=== PATIENT | male | born 1955 | race Caucasian/White ===

== ENCOUNTER 2016-05-16 12:01 | Emergency (ER) | payer BC ==
[~2016-05-16] VITALS: Ht 157.5 cm; Wt 73.9 kg
[~2016-05-16 12:01] MED LIST: AMLO-110 PO; ATOR-22 PO; BUPRTAB51 PO; FENO200C6 PO; IBUP-1451 PO; LISI-786; MELO15TA4 PO; METO1TAB71 PO
[2016-05-16 12:03] VITALS: TEMP 36.8; Ht 157.5 cm; Wt 73.9 kg
[2016-05-16] MEDS ORDERED: LORAZEPAM 1 MG TAB SL STA (13:46)
[2016-05-16 13:52] LABS: HEMATOCRIT 46.4 % (42-52); MEAN CELL VOLUME 83.6 fL (80-100); MEAN CORPUSCULAR HEMOGLOBIN 29.9 pg (25-34); MEAN CORPUSCULAR HGB CONC 35.8 g/dl (32-36); MEAN PLATELET VOLUME 10.9 fL (7.4-10.4); PLATELET COUNT 313 K/uL (130-400); RED BLOOD COUNT 5.55 M/uL (4.7-6.1); WHITE BLOOD COUNT 10.76 K/uL (4.8-10.8)
[2016-05-16 14:03] LABS: ACETAMINOPHEN < 2 ug/ml (10-30)
[2016-05-16 14:06] LABS: BUN/CREATININE RATIO 14.4 (10-20); CALCIUM 9.6 mg/dl (8.5-10.1); CREATININE 1.4 mg/dl (0.60-1.40)
[2016-05-16 14:17] LABS: THYROID STIMULATING HORMONE 2.53 uIu/ml (0.300-4.500)
[2016-05-16 14:34] LABS: BENZODIAZEPINE, URINE NEG (NEG); COCAINE,URINE NEG (NEG); PHENCYCLIDINE, URINE NEG (NEG)
[2016-05-16] MEDS ORDERED: ATV/1 PO (14:56)
[2016-05-16 15:04] VITALS: BP 156/79; PULSE 59; O2SAT 99
--- NOTE | 2016-05-16 19:11 | EMERGENCY ROOM VISIT NOTE ---
History Report prepared by Tatyana: Ivonne Rogers Under the Supervision of: Dr. Mann Reed M.D. First contact with patient: 12:17 Chief Complaint: MENTAL HEALTH EVALUATION Stated Complaint: MR History of Present Illness The patient is a 61 year old male who presents to the Emergency Room with complaints of constant obsessive behaviors beginning a couple of weeks ago. The patient states that he has not felt like himself for years and is having trouble because he gets "stuck on something" and cannot stop thinking about it. He states that right now he is fixated on his teeth and can't stop picking at them with his tongue since he had teeth pulled recently. He reports that he saw his PCP and explained the situation and was told to come in to the ED for further evaluation. The patient states that he feels like he has to be perfect at things and notes that if his car is not parked right he will re-park it until it is perfect. The patient complains of an 18 pound weight loss in the last month due to a lack of eating for fear about his teeth. He also notes that he is very anxious and is uncomfortable from when he wakes up until he goes to sleep. The patient denies any suicidal or homicidal ideation, fever, and vomiting. He notes that he does not see a therapist. He is on Wellbutrin. Source of History: patient Onset: a few weeks Position: other (mental health) Quality: other (anxiety and compulsive behaviors) Timing: constant Modifying Factors (Worsening): eating Associated Symptoms: No fevers, No vomiting Note: The patient complains of an 18 pound weight loss in the last month due to a lack of eating for fear about his teeth. He also notes that he is very anxious and is uncomfortable from when he wakes up until he goes to sleep. The patient denies any suicidal or homicidal ideation. Review of Systems See HPI for pertinent positives & negatives. A total of 10 systems reviewed and were otherwise negative. Past Medical & Surgical Medical Problems: (1) Depression Family History No pertinent family history stated. Social History Smoking Status: Never Smoker Marital Status: Housing Status: lives with significant other Current/Historical Medications Scheduled Amlodipine (Norvasc), 10 MG PO DAILY Atorvastatin (Lipitor), 20 MG PO DAILY Bupropion (Wellbutrin-Xl), 150 MG PO DAILY Fenofibrate (Tricor), 200 MG PO DAILY Ibuprofen Tab (Motrin), 800 MG PO DAILY Lisinopril & Hydrochlorothiazi (Zestoretic), 2 TABLET DAILY Meloxicam (Mobic), 15 MG PO DAILY Metoprolol Succinate (Toprolxl (Toprol-Xl), 200 MG PO DAILY Scheduled PRN Lorazepam (Ativan), 1 MG PO Q12 PRN for Anxiety/Agitation Allergies Coded Allergies: No Known Allergies (Unverified , UNKNOWN, 05/16/16) Uncoded Allergies: NKA (Allergy, Unknown, UNKNOWN, 09/20/14) No Known Allergies Physical Exam Vital Signs Date Time Temp Pulse Resp B/P Pulse Ox O2 Delivery O2 Flow Rate FiO2 05/16/16 15:04 59 18 156/79 99 05/16/16 14:00 51 20 134/79 100 Room Air 05/16/16 12:03 36.8 51 18 141/78 96 Room Air Physical Exam Constitutional: Vital signs reviewed. Eyes: Pupils are equal round reactive to light. Conjunctiva are noninjected. ENT: Pharynx is clear without erythema or exudate. Mucous membranes are moist. Neck supple without meningeal signs. Poor dentition, no signs of gingival hyperemia or abscess, no facial or neck tenderness or swelling or lymphadenopathy. Respiratory: Clear to auscultation bilaterally. Breath sounds are equal bilaterally. Cardiovascular: Regular rate and rhythm. No rubs or gallops. GI: Soft, nondistended and nontender. Bowel sounds are present. Musculoskeletal: No peripheral edema. No lower extremity tenderness. Integumentary: No cyanosis. Neurological: The patient is awake and alert. No focal deficits. Psychiatric: Anxious affect. Medical Decision & Procedures Laboratory Results 05/16/16 12:22 05/16/16 12:22 Test 05/16/16 12:22 05/16/16 13:19 Red Blood Count 5.55 M/uL (4.7-6.1) Mean Corpuscular Volume 83.6 fL (80-100) Mean Corpuscular Hemoglobin 29.9 pg (25-34) Mean Corpuscular Hemoglobin Concent 35.8 g/dl (32-36) RDW Standard Deviation 38.2 fL (36.4-46.3) RDW Coefficient of Variation 12.6 % (11.5-14.5) Mean Platelet Volume 10.9 fL (7.4-10.4) Anion Gap 11.0 mmol/L (3-11) Est Creatinine Clear Calc Drug Dose 49.5 ml/min Estimated GFR () 62.8 Estimated GFR (Non- 54.2 BUN/Creatinine Ratio 14.4 (10-20) Calcium Level 9.6 mg/dl (8.5-10.1) Total Bilirubin 0.8 mg/dl (0.2-1) Direct Bilirubin 0.1 mg/dl (0-0.2) Aspartate Amino Transf (AST/SGOT) 25 U/L (15-37) Alanine Aminotransferase (ALT/SGPT) 47 U/L (12-78) Alkaline Phosphatase 43 U/L (45-117) Total Protein 8.0 gm/dl (6.4-8.2) Albumin 4.7 gm/dl (3.4-5.0) Thyroid Stimulating Hormone (TSH) 2.530 uIu/ml (0.300-4.500) Salicylates Level < 1.7 mg/dl (2.8-20) Acetaminophen Level < 2 ug/ml (10-30) Ethyl Alcohol mg/dL < 3.0 mg/dl (0-3) Urine Opiates Screen NEG (NEG) Urine Methadone, Qualitative NEG (NEG) Urine Barbiturates NEG (NEG) Urine Phencyclidine (PCP) Level NEG (NEG) Ur Amphetamine/Methamphetamine NEG (NEG) MDMA (Ecstasy) Screen POS (NEG) Urine Benzodiazepines Screen NEG (NEG) Urine Cocaine Metabolite NEG (NEG) Urine Marijuana (THC) POS (NEG) Laboratory results as reviewed by me. Medications Administered Medications (Trade) Dose Ordered Sig/Brisa Route Start Time Stop Time Status Last Admin Dose Admin Lorazepam (Ativan Tab) 1 mg NOW STAT SL 05/16/16 13:46 05/16/16 13:47 DC 05/16/16 13:53 1 MG ED Course 1222: The patient was evaluated in room A6. A complete history and physical exam was performed. 1335: I had a long discussion with the patient, his and the mental health block and case maker discussing various options. He wanted to stay in the hospital here and we explained that we have no beds here at [address] [place] [address]. We discussed starting benzodiazepines and he initially got angry and wanted to leave. I was able to calm him down and he was agreeable to starting them here and waiting for reevaluation. 1346: Ativan Tab 1mg SL. 1435: I reevaluated the patient. He is feeling better and is calm. He reports that he has less of an urge to pick his teeth and he is ready to go home. 1505: Upon reevaluation, the patient appeared to have improvement of his symptoms. I discussed tonight's findings with the patient. He verbalized agreement of the treatment plan. The patient was discharged home. Medical Decision This is a 61-year-old male who presents for mental health evaluation. I did perform a limited focused review of portions of the patient's old chart on the electronic medical record. The patient has had no recent pertinent visits to this hospital. I did evaluate the patient as noted above. The patient has had compulsive behaviors for years. He also has significant anxiety. He has been treated by his PCP with Wellbutrin but has not seen a counselor or therapist. He feels like his anxiety is getting worse and he is having trouble sleeping and coping with his behavior. He went to his PCPs office who sent him here for evaluation. I did order and review the patient's blood work as noted in the electronic medical record. I did treat the patient with Ativan 1 mg. I did reassess the patient several times. He is feeling better at this time and feels less anxious. He does not feel like he needs to be hospitalized at this point. The mental health block and case maker will set him up with an appointment with [facility] where he will get therapy as well as medications. He was given a short prescription for Ativan. I did have a long discussion with him and his regarding benzodiazepine including the possibility of physiologic and psychologic dependence. He was discharged in good condition. Impression Primary Impression: Anxiety Additional Impression: Compulsive behavior Scribe Attestation The scribe's documentation has been prepared under my direct and personally reviewed by me in its entirety. I confirm that the note above accurately reflects all work, treatment, procedures, and medical decision making performed by me. Departure Information Dispostion Home / Self-Care Prescriptions Lorazepam (ATIVAN) 1 Mg Tab 1 MG PO Q12 Y for Anxiety/Agitation, #20 TAB Prov: Mann Reed M.D. 05/16/16 Referrals Lamberto Ramirez M.D. (PCP) Forms HOME CARE DOCUMENTATION FORM, IMPORTANT VISIT INFORMATION Patient Instructions ED Obsessive Compulsive Disorder, Lorazepam Oral tablet, [facility] Additional Instructions You have been examined and treated today on an emergency basis only. This is not a substitute for, or an effort to provide, complete comprehensive medical care. It is impossible to recognize and treat all injuries or illnesses in a single emergency department visit. It is therefore important that you follow up closely with your physician, a counselor and psychiatrist. Call as soon as possible for an appointment. Return for worsening symptoms or if you develop thoughts of hurting yourself or others or any other concerning symptoms. Problem Qualifiers
== END 2016-05-16 15:04 | disposition home or self-care (01) ==
LOC: C.EDB 12:03 → C.EDA 15:04
DX: F41.9 Anxiety disorder, unspecified (principal); F60.5 Obsessive-compulsive personality disorder; F32.9 Major depressive disorder, single episode, unspecified; Z79.899 Other long term (current) drug therapy

== ENCOUNTER → 2016-06-02 | Outpatient (CLI) | payer BC ==
[2016-06-02 14:40] LABS: BASO % 0.2 %; BASO ABS # 0.02 K/uL (0-0.2); COMPLETE YES; EOS % 0.9 %; HEMATOCRIT 40.7 % (42-52); IG% 0.5 %; LYMPH % 25.5 %; LYMPH ABS # 2.34 K/uL (1.2-3.4); MEAN CELL VOLUME 83.7 fL (80-100); MEAN CORPUSCULAR HGB CONC 35.9 g/dl (32-36); MEAN PLATELET VOLUME 10.7 fL (7.4-10.4); MONO % 7.8 %; NEUT % 65.1 %; PLATELET COUNT 297 K/uL (130-400); RED BLOOD COUNT 4.86 M/uL (4.7-6.1); WHITE BLOOD COUNT 9.16 K/uL (4.8-10.8)
[2016-06-02 14:54] LABS: ESTIMATED AVERAGE GLUCOSE 123 mg/dl; HA1C FLAG Normal (Normal)
[2016-06-02 15:05] LABS: ALT/SGPT 36 U/L (12-78); AST/SGOT 19 U/L (15-37); BLOOD UREA NITROGEN 22 mg/dl (7-18); BUN/CREATININE RATIO 14.7 (10-20); CALCIUM 9.5 mg/dl (8.5-10.1); CARBON DIOXIDE 26 mmol/L (21-32); CHLORIDE 105 mmol/L (98-107); CHOLESTEROL 131 mg/dl (0-200); GLUCOSE 101 mg/dl (70-99); POTASSIUM 4.1 mmol/L (3.5-5.1); SODIUM 141 mmol/L (136-145)
[2016-06-02 15:18] LABS: ALB/GLOB RATIO 1.5 (0.9-2); ALKALINE PHOSPHATASE 33 U/L (45-117); CHOLESTEROL/HDL RATIO 3.1; HDL CHOLESTEROL 42 mg/dl; LDL CHOLESTEROL CALCULATED 45 mg/dl; TRIGLYCERIDES 221 mg/dl (0-150); VERY LOW DENSITY LIPOPROT CALC 44 mg/dl
== END | disposition home or self-care (01) ==
LOC: C.LAB 13:26
PROVIDERS: ATTEND Internal Medicine Geriatric Medicine
DX: I10 Essential (primary) hypertension (principal); E78.5 Hyperlipidemia, unspecified; R73.9 Hyperglycemia, unspecified; M19.90 Unspecified osteoarthritis, unspecified site

== ENCOUNTER → 2016-06-05 | Outpatient (CLI) | payer BC ==
--- NOTE | 2016-06-05 07:56 | DIAGNOSTIC IMAGING REPORT ---
RENAL ULTRASOUND HISTORY: Pain R79.89 Creatinine elevation COMPARISON: None. FINDINGS: Right kidney: Maximum dimension 10.7 cm. 3 x 2 cm lower pole cyst Normal corticomedullary differentiation and cortical thickness. Left kidney: Maximum dimension 10.5 cm. Normal corticomedullary differentiation and cortical thickness. Bladder: No bladder wall thickening. The bilateral ureteral jets were identified. IMPRESSION: Small right renal cyst. Otherwise negative study Electronically signed by: Tripp Santana M.D. 06/05/2016 7:55 AM Dictated Date/Time: 06/05/2016 7:52 AM
== END | disposition home or self-care (01) ==
LOC: C.ULTRBC 07:20
PROVIDERS: ATTEND Internal Medicine Geriatric Medicine
DX: R79.89 Other specified abnormal findings of blood chemistry (principal); N28.1 Cyst of kidney, acquired

== ENCOUNTER → 2016-06-08 | Outpatient (CLI) | payer BC ==
[2016-06-08 11:36] LABS: BLOOD UREA NITROGEN 18 mg/dl (7-18); BUN/CREATININE RATIO 12.9 (10-20); CARBON DIOXIDE 27 mmol/L (21-32); CHLORIDE 101 mmol/L (98-107); GLUCOSE 124 mg/dl (70-99); POTASSIUM 4.1 mmol/L (3.5-5.1); SODIUM 137 mmol/L (136-145)
== END | disposition home or self-care (01) ==
LOC: C.LABBC 08:21
PROVIDERS: ATTEND Internal Medicine Geriatric Medicine
DX: I10 Essential (primary) hypertension (principal)

== ENCOUNTER → 2017-07-19 | Outpatient (CLI) | payer OTHER ==
[~2017-07-19] MED LIST changes: +MELO-84 PO; -MELO15TA4 PO; -METO1TAB71 PO; +METO200T32 PO
--- NOTE | 2017-07-19 15:30 | DIAGNOSTIC IMAGING REPORT ---
CHEST 2 VIEWS ROUTINE HISTORY: 62 years-old Male R05 [id number] acute cough COMPARISON: Chest radiographs 02/16/2017 TECHNIQUE: PA and lateral views of the chest FINDINGS: Cardiomediastinal and hilar silhouettes are within normal limits. No pneumothorax, pleural effusion, focal airspace consolidation or overt pulmonary edema. The bones of the chest appear grossly intact. IMPRESSION: No acute process. The above report was generated using voice recognition software. It may contain grammatical, syntax or spelling errors. Electronically signed by: Duong Messer M.D. 07/19/2017 3:29 PM Dictated Date/Time: 07/19/2017 3:27 PM
--- NOTE | 2017-07-19 15:34 | DIAGNOSTIC IMAGING REPORT ---
L-SPINE MIN 4 VIEWS ROUTINE, THORACIC SPINE 3 VIEWS ROUTINE HISTORY: 62 years-old Male M54.5 Low back pain acute thoracic and lumbar spine pain COMPARISON: Lumbar spine radiographs 07/20/2014 TECHNIQUE: 5 views of the lumbar spine and 3 views of the thoracic spine FINDINGS: THORACIC: Mild convex right curvature of the thoracic spine. No acute fracture or subluxation. Mild multilevel endplate spurring and mild intervertebral disc space narrowing. Mild anterior endplate wedging of less than 20% involves the T12 vertebral body, unchanged. Imaged lung monroy appear clear. LUMBAR: 5 lumbar type vertebral segments are present. No spondylolysis or spondylolisthesis. No acute fracture or subluxation. Mild multilevel endplate spurring and facet arthrosis. Atherosclerosis of the aorta. IMPRESSION: No acute fracture or subluxation identified involving the thoracic or lumbar spine. The above report was generated using voice recognition software. It may contain grammatical, syntax or spelling errors. Electronically signed by: Duong Messer M.D. 07/19/2017 3:32 PM Dictated Date/Time: 07/19/2017 3:29 PM
[2017-07-19 16:57] LABS: BASO % 0.9 %; BASO ABS # 0.11 K/uL (0-0.2); EOS % 0.8 %; EOS ABS # 0.09 K/uL (0-0.5); HEMATOCRIT 37.8 % (42-52); HEMOGLOBIN 13.2 g/dL (14.0-18.0); IG# 0.59 K/uL (0.00-0.02); LYMPH % 29.4 %; LYMPH ABS # 3.46 K/uL (1.2-3.4); MEAN CELL VOLUME 85.5 fL (80-100); MEAN CORPUSCULAR HEMOGLOBIN 29.9 pg (25-34); MEAN CORPUSCULAR HGB CONC 34.9 g/dl (32-36); MEAN PLATELET VOLUME 10.3 fL (7.4-10.4); MONO % 6.6 %; MONO ABS # 0.78 K/uL (0.11-0.59); NEUT % 57.3 %; NEUT ABS # 6.74 K/uL (1.4-6.5); PLATELET COUNT 394 K/uL (130-400); RED CELL DISTRIBUTION WIDTH CV 13.4 % (11.5-14.5); RED CELL DISTRIBUTION WIDTH SD 41.9 fL (36.4-46.3); WHITE BLOOD COUNT 11.77 K/uL (4.8-10.8)
[2017-07-19 17:25] LABS: ALBUMIN 4.1 gm/dl (3.4-5.0); ALT/SGPT 40 U/L (12-78); BLOOD UREA NITROGEN 24 mg/dl (7-18); CALCIUM 9.7 mg/dl (8.5-10.1); CARBON DIOXIDE 25 mmol/L (21-32); CHOLESTEROL 163 mg/dl (0-200); CREATININE 1.22 mg/dl (0.60-1.40); GLUCOSE 106 mg/dl (70-99); POTASSIUM 4.6 mmol/L (3.5-5.1); SODIUM 139 mmol/L (136-145)
[2017-07-19 17:35] LABS: ALKALINE PHOSPHATASE 53 U/L (45-117); AST/SGOT 20 U/L (15-37); LDL CHOLESTEROL CALCULATED 74 mg/dl; TOTAL PROTEIN 7.6 gm/dl (6.4-8.2)
[2017-07-20 06:28] LABS: HEMOGLOBIN A1C 6.1 % (4.5-5.6)
== END | disposition home or self-care (01) ==
LOC: C.RADBC 13:54
PROVIDERS: ATTEND Internal Medicine Geriatric Medicine
DX: I12.9 Hypertensive chronic kidney disease with stage 1 through stage 4 chronic kidney disease, or unspecified chronic kidney disease (principal); E78.5 Hyperlipidemia, unspecified; F42.9 Obsessive-compulsive disorder, unspecified; F32.9 Major depressive disorder, single episode, unspecified; R73.9 Hyperglycemia, unspecified; E83.52 Hypercalcemia; N18.9 Chronic kidney disease, unspecified; M54.5 Low back pain; R05 Cough

== ENCOUNTER → 2017-07-21 | Outpatient (CLI) | payer OTHER ==
--- NOTE | 2017-07-21 08:28 | DIAGNOSTIC IMAGING REPORT ---
ULTRASOUND ABDOMEN COMPLETE CLINICAL HISTORY: Generalized abdominal pain. COMPARISON STUDY: Renal ultrasound dated 06/05/2016. TECHNIQUE: Real-time, grayscale, and color flow sonography of the abdomen was performed. Images are reviewed in the transverse and longitudinal planes. FINDINGS: Liver: The liver is top normal in size and demonstrates heterogeneously increased echotexture consistent with hepatic steatosis. There is no intrahepatic biliary ductal dilatation. The main portal vein is patent. Gallbladder: The gallbladder is normal in appearance. No gallstones are identified. There is no gallbladder wall thickening or pericholecystic fluid. A sonographic An's sign is reportedly absent. The common bile duct measures up to 0.5 cm in diameter. Pancreas: Visualized portions of the pancreatic head and body are normal in appearance. Spleen: The spleen is normal in size and echotexture, measuring 10.6 cm in length. Kidneys: The kidneys are normal in size and echotexture. There is no hydronephrosis. The right kidney measures 9.9 cm in length and the left kidney measures 10.6 cm in length. No shadowing calculi are identified. A 1.6 cm parapelvic cyst is noted on the right. Abdominal vasculature: Visualized portions of the abdominal aorta and IVC are normal as imaged. Ascites: None. IMPRESSION: 1. No acute sonographic abnormality is identified. No gallstones are seen. 2. Hepatic steatosis. Electronically signed by: Abdias Mayer M.D. 07/21/2017 8:26 AM Dictated Date/Time: 07/21/2017 8:25 AM
== END | disposition home or self-care (01) ==
LOC: C.ULTR 06:43
PROVIDERS: ATTEND Internal Medicine Geriatric Medicine
DX: I70.0 Atherosclerosis of aorta (principal); R10.9 Unspecified abdominal pain